=== PATIENT | male | born 1960 | race Caucasian/White ===

== ENCOUNTER 2018-06-28 08:55 | Emergency (ER) | payer SELFPAY ==
[2018-06-28] MEDS ORDERED: Sodium Chloride 0.9% 10 ML Syringe FLUSH PRN (09:02)
[2018-06-28] MEDS ORDERED: Sodium Chloride 0.9% 2.5 ML Syringe FLUSH PRN (09:02)
--- NOTE | 2018-06-28 09:22 | CT ---
EXAMINATION: Non contrast CT head. Coronal and sagittal reformats. HISTORY: Stroke code FINDINGS: No evidence of intra or extra axial hemorrhage, mass, midline shift, hydrocephalus or edema. No hypoattenuation changes in the major vascular territories to suggest acute infarct. No abnormal intracranial calcifications are detected. No evidence of substantial vascular calcificat ions. Paranasal sinuses and mastoid air cells are well aerated without substantial findings. Orbits and gl obes are symmetric. Pituitary fossa appears unremarkable. Calvarium is intact. No evidence of skull fracture. IMPRESSION: No acute intracranial findings. Above findings were called to the ER at 9:18 AM.
--- NOTE | 2018-06-28 10:07 | EDM.PDOC ---
ED HPI GENERAL MEDICAL PROBLEM - General Chief Complaint: Neurological Problem Stated Complaint: FACE IS NUMB Time Seen by Provider: 06/28/18 09:04 Source of Information: Reports: Patient History Limitations: Reports: No Limitations - History of Present Illness INITIAL COMMENTS - FREE TEXT/NARRATIVE: History of present illness: []Patient woke up this morning tried to use some mouthwash and he noted it drooled out the right side of his mouth. He states he has a left-sided headache behind his ear into his jaw and states that his right arm is numb and tingling. He denies any shortness of breath, chest pain, headache, blurry vision, confusion or difficulty walking. Review of systems: As per history of present illness and below otherwise all systems reviewed and negative. Past medical history: As per history of present illness and as reviewed below otherwise noncontributory. Surgical history: As per history of present illness and as reviewed below otherwise noncontributory. Social history: No reported history of drug or alcohol abuse. Family history: As per history of present illness and as reviewed below otherwise noncontributory. Physical exam: General: Well developed, well nourished in NAD HEENT: Atraumatic, normocephalic, pupils reactive, negative for conjunctival pallor or scleral icterus, mucous membranes moist, throat clear, neck supple, nontender, trachea midline. Lungs: Clear to auscultation, breath sounds equal bilaterally, chest nontender. Heart: S1S2, regular, negative for clicks, rubs, or JVD. Abdomen: Soft, nondistended, nontender. Negative for masses or hepatosplenomegaly. Negative for costovertebral tenderness. Pelvis: Stable nontender. Genitourinary: Deferred. Rectal: Deferred. Extremities: Atraumatic, negative for cords or calf pain. Neurovascular unremarkable. Neuro: Awake, alert, oriented. Left-sided facial droop noted. Cerebellum unremarkable. Motor and sensory unremarkable throughout. Exam nonfocal. Skin:warm and dry Diagnostics: CT head negative Therapeutics: Acyclovir, Solu-Medrol ED Course: unremarkable, Dr. Caruso was consulted Impression: Patton's palsy Prescriptions: Medrol Dosepak Plan: Take meds as directed, follow up with primary care, patch left eye at night Definitive disposition and diagnosis as appropriate pending reevaluation and review of above. - Related Data Allergies Allergy/AdvReac Type Severity Reaction Status Date / Time No Known Allergies Allergy Verified 06/28/18 09:06 Home Meds: Home Meds methylPREDNISolone [Medrol] 4 mg PO ASDIRECTED #1 dosepk 06/28/18 [Rx] Past Medical History - Past Surgical History Musculoskeletal Surgical History: Reports: Other (See Below) Other Musculoskeletal Surgeries/Procedures:: L foot Social & Family History - Tobacco Use Smoking Status *Q: Current Every Day Smoker Years of Tobacco use: 4 Packs/Tins Daily: 0.2 Used Tobacco, but Quit: No Second Hand Smoke Exposure: Yes - Caffeine Use Caffeine Use: Reports: Coffee - Alcohol Use Days Per Week of Alcohol Use: 7 Number of Drinks Per Day: 2 Total Drinks Per Week: 14 - Recreational Drug Use Recreational Drug Use: No ED ROS GENERAL - Review of Systems Review Of Systems: ROS reveals no pertinent complaints other than HPI. ED EXAM, NEURO - Physical Exam Exam: See Below (See history of present illness) Course - Vital Signs Last Recorded V/S: Last Vital Signs Temp 96.2 F 06/28/18 09:00 Pulse 58 L 06/28/18 10:36 Resp 15 06/28/18 10:36 BP 143/90 H 06/28/18 10:36 Pulse Ox 94 L 06/28/18 10:36 - Orders/Labs/Meds Orders: Active Orders 24 hr Category Date Time Status Assess Neurological Status [RC] ASDIRECTED Care 06/28/18 09:02 Active Bedrest [RC] ASDIRECTED Care 06/28/18 09:02 Active Blood Glucose Check, Bedside [RC] STAT Care 06/28/18 09:02 Active Cardiac Monitoring [RC] . DIRECTED Care 06/28/18 09:02 Active EKG Documentation Completion [RC] STAT Care 06/28/18 09:02 Active Height and Weight [RC] UPON Care 06/28/18 09:02 Active Initiate Acute Stroke Protocol [RC] STAT Care 06/28/18 09:02 Active NIH Stroke Scale [RC] ASDIRECTED Care 06/28/18 09:02 Active Nursing Bedside Swallow Screen [RC] ASDIRECTED Care 06/28/18 09:02 Active Oxygen Therapy [RC] ASDIRECTED Care 06/28/18 09:02 Active Stroke Education, General [RC] Click to Edit Care 06/28/18 09:02 Active Vital Signs [RC] Q15M Care 06/28/18 09:02 Active Sodium Chloride 0.9% [Saline Flush] Med 06/28/18 09:02 Active 10 ml FLUSH ASDIRECTED PRN Sodium Chloride 0.9% [Saline Flush] Med 06/28/18 09:02 Active 2.5 ml FLUSH ASDIRECTED PRN Peripheral IV Insertion Adult [OM.PC] Stat Oth 06/28/18 09:02 Ordered Peripheral IV Insertion Adult [OM.PC] Stat Oth 06/28/18 09:02 Ordered Medication Orders Sodium Chloride (Saline Flush) 10 ml FLUSH ASDIRECTED PRN PRN Reason: Keep Vein Open Last Admin: 06/28/18 10:13 Dose: 10 ml Sodium Chloride (Saline Flush) 2.5 ml FLUSH ASDIRECTED PRN PRN Reason: Keep Vein Open Last Admin: 06/28/18 10:12 Dose: 2.5 ml Labs: Laboratory Tests 06/28/18 06/28/18 06/28/18 Range/Units 09:15 09:15 09:15 WBC 5.48 (4.0-11.0) K/uL RBC 4.91 (4.50-5.90) M/uL Hgb 16.6 (13.0-17.0) g/dL Hct 45.6 (38.0-50.0) % MCV 92.9 (80.0-98.0) fL MCH 33.8 H (27.0-32.0) pg MCHC 36.4 (31.0-37.0) g/dL RDW Std Deviation 42.1 (28.0-62.0) fl RDW Coeff of Alan 13 (11.0-15.0) % Plt Count 198 (150-400) K/uL MPV 10.60 (7.40-12.00) fL Neut % (Auto) 42.8 L (48.0-80.0) % Lymph % (Auto) 31.0 (16.0-40.0) % Harrison % (Auto) 11.9 (0.0-15.0) % Eos % (Auto) 12.8 H (0.0-7.0) % Baso % (Auto) 1.5 (0.0-1.5) % Neut # (Auto) 2.4 (1.4-5.7) K/uL Lymph # (Auto) 1.7 (0.6-2.4) K/uL Harrison # (Auto) 0.7 (0.0-0.8) K/uL Eos # (Auto) 0.7 (0.0-0.7) K/uL Baso # (Auto) 0.1 (0.0-0.1) K/uL Nucleated RBC % 0.0 /100WBC Nucleated RBCs # 0 K/uL INR 1.05 APTT 25.7 (18.6-31.3) SEC Sodium 139 (136-148) mmol/L Potassium 4.1 (3.5-5.1) mmol/L Chloride 106 (98-107) mmol/L Carbon Dioxide 22.8 (21.0-32.0) mmol/L BUN 13 (7.0-18.0) mg/dL Creatinine 0.8 (0.8-1.3) mg/dL Est Cr Clr Drug Dosing 94.10 mL/min Estimated GFR (MDRD) > 60.0 ml/min Glucose 100 (74-106) mg/dL Calcium 8.5 (8.5-10.1) mg/dL Total Bilirubin 0.6 (0.2-1.0) mg/dL AST 21 (15-37) IU/L ALT 31 (14-63) IU/L Alkaline Phosphatase 74 (46-116) U/L Troponin I < 0.050 (0.000-0.056) ng/mL Total Protein 7.2 (6.4-8.2) g/dL Albumin 3.6 (3.4-5.0) g/dL Globulin 3.6 H (2.0-3.5) g/dL Albumin/Globulin Ratio 1.0 L (1.3-2.8) TSH 3rd Generation 1.74 (0.36-3.74) uIU/mL Meds: Medications Generic Name Dose Route Start Last Admin Trade Name Freq PRN Reason Stop Dose Admin Sodium Chloride 10 ml 06/28/18 09:02 06/28/18 10:13 Saline Flush FLUSH 10 ml ASDIRECTED PRN Administration Keep Vein Open Sodium Chloride 2.5 ml 06/28/18 09:02 06/28/18 10:12 Saline Flush FLUSH 2.5 ml ASDIRECTED PRN Administration Keep Vein Open Discontinued Medications Generic Name Dose Route Start Last Admin Trade Name Brady PRN Reason Stop Dose Admin Acyclovir 800 mg 06/28/18 10:15 06/28/18 10:21 Zovirax PO 06/28/18 10:16 800 mg ONETIME ONE Administration Methylprednisolone Sodium Succinate 125 mg 06/28/18 10:16 06/28/18 10:21 Solu-Medrol IVPUSH 06/28/18 10:17 125 mg ONETIME ONE Administration Departure - Departure Time of Disposition: 10:49 Disposition: Home, Self-Care 01 Condition: Good Clinical Impression: Patton's palsy - Discharge Information *PRESCRIPTION DRUG MONITORING PROGRAM REVIEWED*: No *COPY OF PRESCRIPTION DRUG MONITORING REPORT IN PATIENT RAISSA: No Prescriptions: methylPREDNISolone [Medrol] 4 mg PO ASDIRECTED #1 dosepk Referrals: PCP,None [Primary Care Provider] - Forms: ED Department Discharge Additional Instructions: The following information is given to patients seen in the emergency department who are being discharged to home. This information is to outline your options for follow-up care. We provide all patients seen in our emergency department with a follow-up referral. The need for follow-up, as well as the timing and circumstances, are variable depending upon the specifics of your emergency department visit. If you don't have a primary care physician on staff, we will provide you with a referral. We always advise you to contact your personal physician following an emergency department visit to inform them of the circumstance of the visit and for follow-up with them and/or the need for any referrals to a consulting specialist. The emergency department will also refer you to a specialist when appropriate. This referral assures that you have the opportunity for follow-up care with a specialist. All of these measure are taken in an effort to provide you with optimal care, which includes your follow-up. Under all circumstances we always encourage you to contact your private physician who remains a resource for coordinating your care. When calling for follow-up care, please make the office aware that this follow-up is from your recent emergency room visit. If for any reason you are refused follow-up, please contact the [facility] Emergency Department at and asked to speak to the emergency department charge nurse. Take Medrol Dosepak as directed on package follow-up with primary care return if symptoms worsen or change. A you patch your left eye at night so it does not dry out. BHAVIK [facility] [place] [id number] - My Orders Last 24 Hours: My Active Orders 06/28/18 09:02 Assess Neurological Status [RC] ASDIRECTED Bedrest [RC] ASDIRECTED Blood Glucose Check, Bedside [RC] STAT Cardiac Monitoring [RC] . DIRECTED EKG Documentation Completion [RC] STAT Height and Weight [RC] UPON Initiate Acute Stroke Protocol [RC] STAT NIH Stroke Scale [RC] ASDIRECTED Nursing Bedside Swallow Screen [RC] ASDIRECTED Oxygen Therapy [RC] ASDIRECTED Stroke Education, General [RC] Click to Edit Vital Signs [RC] Q15M Sodium Chloride 0.9% [Saline Flush] 10 ml FLUSH ASDIRECTED PRN Sodium Chloride 0.9% [Saline Flush] 2.5 ml FLUSH ASDIRECTED PRN Peripheral IV Insertion Adult [OM.PC] Stat Peripheral IV Insertion Adult [OM.PC] Stat - Assessment/Plan Last 24 Hours: My Active Orders 06/28/18 09:02 Assess Neurological Status [RC] ASDIRECTED Bedrest [RC] ASDIRECTED Blood Glucose Check, Bedside [RC] STAT Cardiac Monitoring [RC] . DIRECTED EKG Documentation Completion [RC] STAT Height and Weight [RC] UPON Initiate Acute Stroke Protocol [RC] STAT NIH Stroke Scale [RC] ASDIRECTED Nursing Bedside Swallow Screen [RC] ASDIRECTED Oxygen Therapy [RC] ASDIRECTED Stroke Education, General [RC] Click to Edit Vital Signs [RC] Q15M Sodium Chloride 0.9% [Saline Flush] 10 ml FLUSH ASDIRECTED PRN Sodium Chloride 0.9% [Saline Flush] 2.5 ml FLUSH ASDIRECTED PRN Peripheral IV Insertion Adult [OM.PC] Stat Peripheral IV Insertion Adult [OM.PC] Stat
[2018-06-28] MEDS ORDERED: Acyclovir 200 MG Cap PO ONE (10:15)
[2018-06-28] MEDS ORDERED: methylPREDNISolone Sodium Succinate 125 MG/2 ML SDV IVPUSH ONE (10:16)
[2018-06-28 10:33] LABS: CHLORIDE,CL 106 mmol/L (98-107); SODIUM,NA 139 mmol/L (136-148)
--- NOTE | 2018-06-28 11:07 | EDM.PDOC ---
ED HPI GENERAL MEDICAL PROBLEM - General Chief Complaint: Neurological Problem Stated Complaint: FACE IS NUMB Time Seen by Provider: 06/28/18 09:04 Source of Information: Reports: Patient History Limitations: Reports: No Limitations - History of Present Illness INITIAL COMMENTS - FREE TEXT/NARRATIVE: For the last 3 days, he has had pain behind his left ear that extends up to the left side of his head. He has decreased hearing in the left ear chronically, but o recent change. This morning, he felt tightness/tingling on the right side of face prompting presentation to ED. No other symptoms. No fevers, chills, rash, weakness, numbness in limbs, ataxia. - Related Data Allergies Allergy/AdvReac Type Severity Reaction Status Date / Time No Known Allergies Allergy Verified 06/28/18 09:06 Home Meds: Home Meds methylPREDNISolone [Medrol] 4 mg PO ASDIRECTED #1 dosepk 06/28/18 [Rx] Past Medical History Cardiovascular History: Reports: Hypertension - Past Surgical History Musculoskeletal Surgical History: Reports: Other (See Below) Other Musculoskeletal Surgeries/Procedures:: L foot Social & Family History - Family History Other Family History: no history of stroke or DE - Tobacco Use Smoking Status *Q: Current Every Day Smoker Years of Tobacco use: 4 Packs/Tins Daily: 0.2 Used Tobacco, but Quit: No Second Hand Smoke Exposure: Yes - Caffeine Use Caffeine Use: Reports: Coffee - Alcohol Use Days Per Week of Alcohol Use: 7 Number of Drinks Per Day: 2 Total Drinks Per Week: 14 - Recreational Drug Use Recreational Drug Use: No ED ROS GENERAL - Review of Systems Review Of Systems: ROS reveals no pertinent complaints other than HPI. ED EXAM, NEURO - Physical Exam Exam: See Below Comments: Constitutional: No acute distress Psychiatric: Mood/Affect: normal/appropriate Neurological: Mental Status: General: Normal activity, good hygiene, appropriate appearance. Level of consciousness: Awake, alert. Concentration/Attention Span: Normal. Comprehension/Praxis: Able to perform a three step command. Fund of Knowledge/memory: Adequate recent and remote recall. Language: Fluent and articulate without evidence of aphasia or dysarthria. Thought Content: Normal. Insight/Judgement: Normal. Cranial Nerves: Pupils equally round and reactive to light. Visual kelley full to confrontation. Gaze conjugate, EOMI. Sensation intact and symmetric to temp bilateral V1-V3. Moderate left facial droop with decrease furrowing of brow on the left. . Palate elevates symmetrically. Normal shrug bilaterally. Tongue protrudes midline Motor: Normal tone in all groups. No drift. Power is 5/5 throughout proximal and distal muscles. Sensation: Sensation is intact to temp Deep tendon reflexes: Normoactive throughout. Coordination: Finger to nose, heel to thomson and rapid alternating movements are intact. Eyes: non icteric, Mouth: moist mucus membranes Cardiovascular: RRR, no bruits Respiratory: clear lungs GI: non tender Skin: no visible rash left face Course - Vital Signs Last Recorded V/S: Last Vital Signs Temp 35.7 C 06/28/18 09:00 Pulse 58 L 06/28/18 10:36 Resp 15 06/28/18 10:36 BP 143/90 H 06/28/18 10:36 Pulse Ox 94 L 06/28/18 10:36 - Orders/Labs/Meds Orders: Active Orders 24 hr Category Date Time Status Assess Neurological Status [RC] ASDIRECTED Care 06/28/18 09:02 Active Bedrest [RC] ASDIRECTED Care 06/28/18 09:02 Active Blood Glucose Check, Bedside [RC] STAT Care 06/28/18 09:02 Active Cardiac Monitoring [RC] . DIRECTED Care 06/28/18 09:02 Active EKG Documentation Completion [RC] STAT Care 06/28/18 09:02 Active Height and Weight [RC] UPON Care 06/28/18 09:02 Active Initiate Acute Stroke Protocol [RC] STAT Care 06/28/18 09:02 Active NIH Stroke Scale [RC] ASDIRECTED Care 06/28/18 09:02 Active Nursing Bedside Swallow Screen [RC] ASDIRECTED Care 06/28/18 09:02 Active Oxygen Therapy [RC] ASDIRECTED Care 06/28/18 09:02 Active Stroke Education, General [RC] Click to Edit Care 06/28/18 09:02 Active Vital Signs [RC] Q15M Care 06/28/18 09:02 Active Sodium Chloride 0.9% [Saline Flush] Med 06/28/18 09:02 Active 10 ml FLUSH ASDIRECTED PRN Sodium Chloride 0.9% [Saline Flush] Med 06/28/18 09:02 Active 2.5 ml FLUSH ASDIRECTED PRN Peripheral IV Insertion Adult [OM.PC] Stat Oth 06/28/18 09:02 Ordered Peripheral IV Insertion Adult [OM.PC] Stat Oth 06/28/18 09:02 Ordered Medication Orders Sodium Chloride (Saline Flush) 10 ml FLUSH ASDIRECTED PRN PRN Reason: Keep Vein Open Last Admin: 06/28/18 10:13 Dose: 10 ml Sodium Chloride (Saline Flush) 2.5 ml FLUSH ASDIRECTED PRN PRN Reason: Keep Vein Open Last Admin: 06/28/18 10:12 Dose: 2.5 ml Labs: Laboratory Tests 06/28/18 06/28/18 06/28/18 Range/Units 09:15 09:15 09:15 WBC 5.48 (4.0-11.0) K/uL RBC 4.91 (4.50-5.90) M/uL Hgb 16.6 (13.0-17.0) g/dL Hct 45.6 (38.0-50.0) % MCV 92.9 (80.0-98.0) fL MCH 33.8 H (27.0-32.0) pg MCHC 36.4 (31.0-37.0) g/dL RDW Std Deviation 42.1 (28.0-62.0) fl RDW Coeff of Alan 13 (11.0-15.0) % Plt Count 198 (150-400) K/uL MPV 10.60 (7.40-12.00) fL Neut % (Auto) 42.8 L (48.0-80.0) % Lymph % (Auto) 31.0 (16.0-40.0) % [place]ade % (Auto) 11.9 (0.0-15.0) % Eos % (Auto) 12.8 H (0.0-7.0) % Baso % (Auto) 1.5 (0.0-1.5) % Neut # (Auto) 2.4 (1.4-5.7) K/uL Lymph # (Auto) 1.7 (0.6-2.4) K/uL Dade # (Auto) 0.7 (0.0-0.8) K/uL Eos # (Auto) 0.7 (0.0-0.7) K/uL Baso # (Auto) 0.1 (0.0-0.1) K/uL Nucleated RBC % 0.0 /100WBC Nucleated RBCs # 0 K/uL INR 1.05 APTT 25.7 (18.6-31.3) SEC Sodium 139 (136-148) mmol/L Potassium 4.1 (3.5-5.1) mmol/L Chloride 106 (98-107) mmol/L Carbon Dioxide 22.8 (21.0-32.0) mmol/L BUN 13 (7.0-18.0) mg/dL Creatinine 0.8 (0.8-1.3) mg/dL Est Cr Clr Drug Dosing 94.10 mL/min Estimated GFR (MDRD) > 60.0 ml/min Glucose 100 (74-106) mg/dL Calcium 8.5 (8.5-10.1) mg/dL Total Bilirubin 0.6 (0.2-1.0) mg/dL AST 21 (15-37) IU/L ALT 31 (14-63) IU/L Alkaline Phosphatase 74 (46-116) U/L Troponin I < 0.050 (0.000-0.056) ng/mL Total Protein 7.2 (6.4-8.2) g/dL Albumin 3.6 (3.4-5.0) g/dL Globulin 3.6 H (2.0-3.5) g/dL Albumin/Globulin Ratio 1.0 L (1.3-2.8) TSH 3rd Generation 1.74 (0.36-3.74) uIU/mL Meds: Medications Generic Name Dose Route Start Last Admin Trade Name Freq PRN Reason Stop Dose Admin Sodium Chloride 10 ml 06/28/18 09:02 06/28/18 10:13 Saline Flush FLUSH 10 ml ASDIRECTED PRN Administration Keep Vein Open Sodium Chloride 2.5 ml 06/28/18 09:02 06/28/18 10:12 Saline Flush FLUSH 2.5 ml ASDIRECTED PRN Administration Keep Vein Open Discontinued Medications Generic Name Dose Route Start Last Admin Trade Name Freq PRN Reason Stop Dose Admin Acyclovir 800 mg 06/28/18 10:15 06/28/18 10:21 Zovirax PO 06/28/18 10:16 800 mg ONETIME ONE Administration Methylprednisolone Sodium Succinate 125 mg 06/28/18 10:16 06/28/18 10:21 Solu-Medrol IVPUSH 06/28/18 10:17 125 mg ONETIME ONE Administration - Re-Assessments/Exams Free Text/Narrative Re-Assessment/Exam: 06/28/18 11:07 CT head normal Departure - Departure Time of Disposition: 11:00 Disposition: Home, Self-Care 01 Condition: Good Clinical Impression: Patton's palsy - Discharge Information *PRESCRIPTION DRUG MONITORING PROGRAM REVIEWED*: No *COPY OF PRESCRIPTION DRUG MONITORING REPORT IN PATIENT RAISSA: No Prescriptions: methylPREDNISolone [Medrol] 4 mg PO ASDIRECTED #1 dosepk Referrals: PCP,None [Primary Care Provider] - Forms: ED Department Discharge Additional Instructions: The following information is given to patients seen in the emergency department who are being discharged to home. This information is to outline your options for follow-up care. We provide all patients seen in our emergency department with a follow-up referral. The need for follow-up, as well as the timing and circumstances, are variable depending upon the specifics of your emergency department visit. If you don't have a primary care physician on staff, we will provide you with a referral. We always advise you to contact your personal physician following an emergency department visit to inform them of the circumstance of the visit and for follow-up with them and/or the need for any referrals to a consulting specialist. The emergency department will also refer you to a specialist when appropriate. This referral assures that you have the opportunity for follow-up care with a specialist. All of these measure are taken in an effort to provide you with optimal care, which includes your follow-up. Under all circumstances we always encourage you to contact your private physician who remains a resource for coordinating your care. When calling for follow-up care, please make the office aware that this follow-up is from your recent emergency room visit. If for any reason you are refused follow-up, please contact the [facility] Emergency Department at and asked to speak to the emergency department charge nurse. Take Medrol Dosepak as directed on package follow-up with primary care return if symptoms worsen or change. A you patch your left eye at night so it does not dry out. [facility] [address] [place] [id number] - Problem List Review Problem List Initiated/Reviewed/Updated: Yes - Assessment/Plan Plan: Assessment: Clinical picture most consistent with left 7th n. palsy / Patton's palsy. He describes abnormal sensation on the right side, but there are not deficits noted on the right side. Agree with course of prednisone Discussed eye patch at night to prevent corneal injury
== END 2018-06-28 11:23 | disposition home or self-care (01) ==
LOC: MW.ED 08:55
DX: G51.0 Bell's palsy (principal); I10 Essential (primary) hypertension; F17.210 Nicotine dependence, cigarettes, uncomplicated
CPT/HCPCS: 36415; 70450; 80053; 82962; 84443; 84484; 85025; 85610; 85730; 93005; 96374; 99284; A9270; J2930; 99283